=== PATIENT | female | born 1950 | race Caucasian/White ===

== ENCOUNTER → 2021-05-04 00:25 | Outpatient (CLI) | payer MEDICARE, SELFPAY ==
[2021-05-04 19:52] LABS: SARS-CoV-2 RNA PCR Negative
== END ==
PROVIDERS: PCP Internal Medicine; Visit Provider Nurse Practitioner
DX: R05 Cough (principal); Z20.822 Contact with and (suspected) exposure to COVID-19
CPT/HCPCS: C9803; U0003; U0005

== ENCOUNTER 2023-05-12 10:01 | Emergency (ER) | payer MEDICARE, SELFPAY ==
[2023-05-12 10:10] VITALS: BP 139/79; PULSE 91; RESP 20; TEMP 37.2; O2SAT 97
--- NOTE | 2023-05-12 10:28 | ED.URI ---
HPI - URI/Sore Throat General Chief Complaint: Upper Respiratory Infection Stated Complaint: ears blocked ,sore throat,dizzy Time Seen by Provider: 05/12/23 10:28 Source: patient and RN notes reviewed Mode of arrival: ambulatory Limitations: no limitations History of Present Illness HPI Narrative: 73 y/o female presented for c/o sinus infection x2 weeks, and right ear pressure rating 9/10. Also reports both eyes are gritty. Taking claritin mucinex flonase for symptoms without significant relief. States she has been trying to contact her doctor for a prescription for doxycycline which is what helps her hx of sinus infections. Denies sob, wheezing, n/v/d/f/c. MD elicited complaint: cough Related Data Home Medications Medication Instructions Recorded Confirmed ascorbate calcium (vitamin C) 500 500 mg PO DAILY 09/28/21 02/26/23 mg tablet cholecalciferol (vitamin D3) 50 50 mcg PO DAILY 09/28/21 02/26/23 mcg (2,000 unit) capsule folic acid 800 mcg tablet 0.8 mg PO DAILY 09/28/21 02/26/23 mecobalamin (vitamin B12) 5,000 5,000 mcg PO DAILY 09/28/21 02/26/23 mcg lozenge multivitamin 1 tablet PO DAILY 09/28/21 02/26/23 omega-3 fatty acids-fish oil 300 1 cap PO DAILY 09/28/21 02/26/23 mg-500 mg capsule (Fish Oil) Allergies Allergy/AdvReac Type Severity Reaction Status Date / Time codeine Allergy Mild itching Verified 05/12/23 10:23 [id number] Reductase AdvReac Severe Muscle Pain Verified 05/12/23 10:23 Inhibitor Review of Systems Review of Systems: CONSTITUTIONAL: Denies malaise, chills, sweats, fever EYES: Denies visual changes, redness, or discharge ENT: Reports rhinorrhea, congestion, sinus pain, otalgia CARDIOVASCULAR: Denies chest pain, palpitations, edema RESPIRATORY: Reports cough, post nasal drainage. Denies dyspnea GASTROINTESTINAL: Denies abdominal pain, nausea, vomiting, diarrhea SKIN: Denies rash or itching MUSCULOSKELETAL: Denies myalgia NEUROLOGIC: Denies headache PMFSH Past Medical History Medical History Essential hypertension Gallbladder calculus with acute cholecystitis Hyperlipidemia Tinnitus 'Swooshing' noise Vitamin D deficiency, unspecified Surgical History Surgical History Hx of cholecystectomy Social History Social History Smoking packs per day: 0.2 Smoking cigarettes per day: 4.0 Years smoked: 47 Smoking pack-years: 9.40 Smoking status: Former smoker Tobacco type: cigarettes Second hand tobacco smoke exposure: No Smoking end date: 08/19/22 Alcohol intake: never Alcohol use details: social, occasionally, holidays only Substance use: never Substance use type: does not use Lack of Transportation: No Lack of Food: Never True Current Housing: I Have Housing Concerned About Future Housing: No Difficulty Paying Gas/Electric Bills: No Difficulty Paying for Meds: No Currently Unemployed: No Education: Associate Degree Difficulty w/ Childcare or Family Care: No Exam Narrative: GENERAL: mildly Ill-appearing, nontoxic no acute distress. HEAD: Normocephalic EYES: PERRLA, conjunctivae clear ENT: Mucous membranes moist. Left TM pearly johnson with dull light reflex; Right TM erythematous, bulging and intact, canal not erythematous, No drainage no tragal or mastoid tenderness. Oropharynx erythematous without lesions or exudate, no drooling, no hoarseness, no trismus, uvula midline. No tripod positioning, muffled voice, soft palate or pharyngeal wall bulging NECK: Supple. No lymphadenopathy CHEST: Clear to auscultation, breath sounds equal. No wheezing, rhonchi, rales, or stridor. No respiratory distress, speaks in full sentences. HEART: Regular rate and rhythm. No murmur heard. SKIN: Warm, dry, no rash. NEURO: Alert and oriented x3. PSYCH: Normal mood and affect
[2023-05-12 12:10] VITALS: BP 139/79; PULSE 91; RESP 20; TEMP 37.2; O2SAT 97
== END 2023-05-12 10:54 | disposition home or self-care (01) ==
PROVIDERS: Emergency Provider Nurse Practitioner Family
DX: H66.91 Otitis media, unspecified, right ear (principal); Z87.891 Personal history of nicotine dependence; I10 Essential (primary) hypertension; E78.5 Hyperlipidemia, unspecified; E55.9 Vitamin D deficiency, unspecified
CPT/HCPCS: 99213; G0463